=== PATIENT | female | born 1950 | race Caucasian/White ===

== ENCOUNTER → 2018-03-30 | Outpatient (CLI) | payer MEDICARE, OTHER | LOC: COL.RAD 12:47 | DX: M53.3 Sacrococcygeal disorders, not elsewhere classified (principal) | CPT/HCPCS: G0260; J3301 ==

== ENCOUNTER 2018-09-13 17:02 | Emergency (ER) | payer MEDICARE, OTHER ==
[~2018-09-13] VITALS: Ht 170.2 cm; Wt 103.2 kg
[2018-09-13 17:08] VITALS: TEMP 97.1
[2018-09-13 17:22] LABS: BASO % 0.2 % (0.0-2.0); EOS # 0.2 (0.0-0.7); EOS % 4.5 % (0-4.0); GRAN # 2.9 (1.4-6.5); GRAN % 56.9 % (42.2-75.2); HEMATOCRIT 40.2 % (37.0-47.0); HEMOGLOBIN 14.4 g/dl (12.5-16.0); LYMPH # 1.5 (1.2-3.4); LYMPH % 29.7 % (20.0-51.0); MEAN CELL VOLUME 85 fl (80.0-100.0); MEAN CORPUSCULAR HEMOGLOBIN 30 pg (27.0-31.0); MEAN CORPUSCULAR HGB CONC 36 g/dl (33.0-37.0); MONO # 0.4 (0.1-0.6); MONO % 8.1 % (1.7-9.3); PLATELET COUNT 154 K/mm3 (130-400); RED BLOOD COUNT 4.73 M/mm3 (4.10-5.30)
[2018-09-13] MEDS ORDERED: NORVASC 10MG10 MG PO (17:26)
[2018-09-13] MEDS ORDERED: PROAIR HFA0.09 MG/AC INH (17:26)
[2018-09-13] MEDS ORDERED: CALCIUM 600MG+D1 TAB PO (17:27)
[2018-09-13] MEDS ORDERED: ASPIRIN 81M81 MG/TA2 PO (17:27)
[2018-09-13] MEDS ORDERED: CATAPRES0.2 MG PO (17:27)
[2018-09-13] MEDS ORDERED: CARDURA4 MG PO (17:28)
[2018-09-13] MEDS ORDERED: ZYRTEC10MGSGL PO (17:29)
[2018-09-13] MEDS ORDERED: EPA FISH OIL1 SGL PO (17:29)
[2018-09-13] MEDS ORDERED: LOPID 600M600 MG/TAB PO (17:30)
[2018-09-13] MEDS ORDERED: APRESOLINE 25MG25 MG PO (17:30)
[2018-09-13] MEDS ORDERED: NASONEX SPRAY17 GM INH (17:31)
[2018-09-13] MEDS ORDERED: LOPRESSOR 550 MG/TAB PO (17:31)
[2018-09-13] MEDS ORDERED: MULTI-VITAMIN W1 TA2 PO (17:31)
[2018-09-13] MEDS ORDERED: ALTACE 10MG TAB10 MG PO (17:32)
[2018-09-13] MEDS ORDERED: PRAVACHOL 40MG40 MG PO (17:32)
[2018-09-13] MEDS ORDERED: JANUVIA50 MG PO (17:33)
[2018-09-13 17:35] LABS: ALBUMIN 4.7 gm/dL (3.5-5.0); BILIRUBIN,TOTAL 0.7 mg/dL (0.0-1.0); CALCIUM 10.6 mg/dL (8.4-10.2); CREATININE, serum 1.32 (0.52-1.25); TOTAL PROTEIN 7.9 gm/dL (6.4-8.2)
[2018-09-13 18:04] LABS: TROPONIN-I < 0.012 ng/mL (0.000-0.035)
[2018-09-13 18:44] LABS: COLLECTION METHOD CLEAN CATCH
[2018-09-13 18:54] LABS: MUCOUS Present /lpf; PH 7 (5-8); SQUAMOUS EPITHELIAL 0-2 /hpf; URINE APPEARANCE Clear; URINE BACTERIA None Seen /hpf; URINE BILIRUBIN Negative (NEGATIVE); URINE BLOOD Negative (NEGATIVE); URINE COLOR Colorless; URINE GLUCOSE Negative (NEGATIVE); URINE KETONE Negative (NEGATIVE); URINE LEUKOCYTE ESTERASE 1+ (NEGATIVE); URINE NITRATE Negative (NEGATIVE); URINE PROTEIN(semi-quant) 1+ (NEGATIVE); URINE RBC 0-2 /hpf; URINE UROBILINOGEN Negative (NEGATIVE)
[2018-09-13] MEDS ORDERED: ELIQUIS 5MG PO (19:00)
[2018-09-13 19:10] VITALS: BP 112/70; PULSE 83
== END 2018-09-13 19:20 | disposition home or self-care (01) ==
LOC: COL.ER 17:02
PROVIDERS: Emergency Medicine
DX: I48.91 Unspecified atrial fibrillation (principal); E11.9 Type 2 diabetes mellitus without complications; I10 Essential (primary) hypertension; Z79.84 Long term (current) use of oral hypoglycemic drugs; Z79.82 Long term (current) use of aspirin

== ENCOUNTER 2018-09-21 10:50 | Inpatient (IN) | payer MEDICARE, OTHER ==
[~2018-09-21] VITALS: Ht 172.7 cm; Wt 101.4 kg
[~2018-09-21 10:50] MED LIST: ALTACE 10MG TAB10 MG PO; APRESOLINE 25MG25 MG PO; ASPIRIN 81M81 MG/TA2 PO; CALCIUM 600MG+D1 TAB PO; CARDURA4 MG PO; CATAPRES0.2 MG PO; ELIQUIS 5MG PO; EPA FISH OIL1 SGL PO; JANUVIA50 MG PO; LOPID 600M600 MG/TAB PO; LOPRESSOR 550 MG/TAB PO; MULTI-VITAMIN W1 TA2 PO; NASONEX SPRAY17 GM INH; NORVASC 10MG10 MG PO; PRAVACHOL 40MG40 MG PO; PROAIR HFA0.09 MG/AC INH; ZYRTEC10MGSGL PO
[2018-09-24] MEDS ORDERED: TOPROL XL100 MG PO (09:44)
[2018-09-24] MEDS ORDERED: LOPRESSOR100 MG PO (09:46)
[2018-09-24] MEDS ORDERED: ZYRTEC 10MG10 MG PO (09:48)
[2018-09-24 09:58] LABS: HEMOGLOBIN 12.1 g/dl (12.5-16.0); MEAN CELL VOLUME 87 fl (80.0-100.0); MEAN CORPUSCULAR HEMOGLOBIN 30 pg (27.0-31.0); MEAN CORPUSCULAR HGB CONC 35 g/dl (33.0-37.0); MEAN PLATELET VOLUME 9.4 fl (7.4-10.4); PLATELET COUNT 148 K/mm3 (130-400); REDCELL DISTRIBUTION WIDTH-CV 11.9 % (11.5-14.5)
[2018-09-24 10:02] LABS: HEMATOCRIT 34.8 % (37.0-47.0)
[2018-09-24 10:05] LABS: INR 1.1 (0.8-3.0)
[2018-09-24 10:08] LABS: ALBUMIN 4.1 gm/dL (3.5-5.0); BILIRUBIN,TOTAL 0.6 mg/dL (0.0-1.0); CALCIUM 9.8 mg/dL (8.4-10.2); CREATININE, serum 1.6 (0.52-1.25); MAGNESIUM 2.2 mg/dL (1.6-2.3); POTASSIUM 4.8 mmol/L (3.4-5.0); TOTAL PROTEIN 6.8 gm/dL (6.4-8.2)
[2018-09-24 10:21] VITALS: BP 174/71; PULSE 53; TEMP 97.5
[2018-09-24 12:21] VITALS: BP 143/67; PULSE 55; TEMP 97.9
[2018-09-24 16:40] VITALS: BP 115/57; BP 128/53; PULSE 54; PULSE 84; TEMP 97.4; TEMP 97.9
--- NOTE | 2018-09-24 19:20 | NUR ---
Pt is independent in the room is able to use the restroom on own and transfer to the recliner as desired, VS have remained stable from admit this morning, spouse spent a good portion of the day in the room with the Pt. No C/O pain, loop recorder site remains CDI.
[2018-09-24 19:57] VITALS: BP 171/67; PULSE 51; TEMP 97.6
[2018-09-24 23:04] VITALS: BP 127/60; PULSE 50; TEMP 97.7
--- NOTE | 2018-09-24 23:52 | NUR ---
2000: PATIENT LAYING FLAT IN BED. RIGHT GROIN HEART CATH SITE PRESENTS SOFT, NO VISIBLE BRUISING. DRESSING CDI.
[2018-09-25 05:08] VITALS: BP 137/54; PULSE 50; TEMP 98.3
--- NOTE | 2018-09-25 06:35 | NUR ---
CALL TO DR [facility] FOR IMDUR. REVIEWED DOCUMENTED BP, HR AND TELEMETRY STRIPS. COMMUNICATION TO ADMINISTERED IMDUR ACCORDING TO SCHEDULE.
[2018-09-25 06:54] LABS: BASO % 0.2 % (0.0-2.0); EOS # 0.2 (0.0-0.7); EOS % 5.2 % (0-4.0); GRAN # 2.1 (1.4-6.5); GRAN % 51.7 % (42.2-75.2); LYMPH # 1.4 (1.2-3.4); LYMPH % 34.2 % (20.0-51.0); MEAN CELL VOLUME 88 fl (80.0-100.0); MEAN CORPUSCULAR HEMOGLOBIN 30 pg (27.0-31.0); MEAN CORPUSCULAR HGB CONC 34 g/dl (33.0-37.0); MEAN PLATELET VOLUME 9.6 fl (7.4-10.4); MONO # 0.3 (0.1-0.6); MONO % 8.5 % (1.7-9.3); PLATELET COUNT 148 K/mm3 (130-400); RED BLOOD COUNT 3.97 M/mm3 (4.10-5.30)
[2018-09-25 07:05] LABS: CALCIUM 9.3 mg/dL (8.4-10.2); CREATININE, serum 1.41 (0.52-1.25); MAGNESIUM 2.1 mg/dL (1.6-2.3); POTASSIUM 4.4 mmol/L (3.4-5.0)
[2018-09-25 07:08] LABS: HEMATOCRIT 34.9 % (37.0-47.0)
[2018-09-25 07:19] VITALS: BP 157/64; PULSE 51; TEMP 98.2
--- NOTE | 2018-09-25 08:14 | NUR ---
Pt awake and eating breakfast, no C/O pain at this time, some minor discomfort at loop recorder insertion site, shift assessment complete, left Pt call light in reach, bed in lowest position.
[2018-09-25 11:20] VITALS: BP 144/62; PULSE 52; TEMP 97.5
--- NOTE | 2018-09-25 11:24 | NUR ---
First visit from the service porter. prayed with patient. No other needs right now.
--- NOTE | 2018-09-25 15:27 | NUR ---
WAYNE met with the patient to discuss discharge plan. The patient lives in [place] with her , Yordy. She reports independence with ADLs and has a CPAP from [employer]. The patient's PCP is Dr. Laisha Mcclain and she receives her medications from the [facility] in [place]. She reports no difficulties obtaining his meds. The patient does not have advanced directives, but she states that she has the forms at home. The patient plans to return home with her upon discharge. No additional needs at this time.
[2018-09-25 16:36] VITALS: BP 143/67; PULSE 50; TEMP 97.6
--- NOTE | 2018-09-25 18:24 | NUR ---
Pt has been resting comfortably in room, no C/O pain at the loop recorder site, bandages remain CDI, Vs have remained stable.
[2018-09-25 19:58] VITALS: BP 153/62; PULSE 51; TEMP 97.5
--- NOTE | 2018-09-25 20:00 | NUR ---
Shift assessment complete. Pt resting in bed, awake, a&o, cooperative c cares. Pt denies pain or any other c/o. INT patent. Tele in place. Pt denies needs. Call light in reach, will monitor.
[2018-09-26] VITALS (7 sets, daily range): BP systolic 120–173; BP diastolic 53–84; PULSE 41–50; TEMP 97.5–98.4
[2018-09-26 06:09] LABS: BASO % 0.2 % (0.0-2.0); EOS # 0.3 (0.0-0.7); EOS % 5.8 % (0-4.0); GRAN # 2.6 (1.4-6.5); GRAN % 56.6 % (42.2-75.2); HEMOGLOBIN 12.1 g/dl (12.5-16.0); LYMPH # 1.3 (1.2-3.4); LYMPH % 28.8 % (20.0-51.0); MEAN CELL VOLUME 86 fl (80.0-100.0); MEAN CORPUSCULAR HEMOGLOBIN 30 pg (27.0-31.0); MEAN CORPUSCULAR HGB CONC 35 g/dl (33.0-37.0); MEAN PLATELET VOLUME 10.3 fl (7.4-10.4); MONO # 0.4 (0.1-0.6); MONO % 8.2 % (1.7-9.3); PLATELET COUNT 141 K/mm3 (130-400); RED BLOOD COUNT 4.02 M/mm3 (4.10-5.30); REDCELL DISTRIBUTION WIDTH-CV 11.9 % (11.5-14.5)
[2018-09-26 06:10] LABS: HEMATOCRIT 34.6 % (37.0-47.0)
--- NOTE | 2018-09-26 06:10 | NUR ---
Pt resting in bed, condition unchanged. Pt has rested well this shift c very few needs. No needs at this time. Tele remains sinus/ sinus yumiko; pt asymptomatic. Call light in reach.
[2018-09-26 06:16] LABS: CALCIUM 9.6 mg/dL (8.4-10.2); CREATININE, serum 1.32 (0.52-1.25); MAGNESIUM 2.1 mg/dL (1.6-2.3); POTASSIUM 4.5 mmol/L (3.4-5.0)
--- NOTE | 2018-09-26 11:12 | NUR ---
Pt sitting up in recliner, no C/O pain, shift assessments complete, left Pt call light in reach, bed in lowest position.
--- NOTE | 2018-09-26 11:25 | NUR ---
Patient was not in the room.
--- NOTE | 2018-09-26 18:05 | NUR ---
Pt resting comfortably in room, urine is still very dark he does have good output. No C/O pain and his VS have remained stable during the shift. Pt did have a bath today with the assistance of the LAMINATING MACHINE TENDER.
--- NOTE | 2018-09-26 18:11 | NUR ---
Pt has been resting in the room she has been independent in the room, no C/O pain, VS have remained stable.
[2018-09-27 03:43] VITALS: BP 123/50; PULSE 48; TEMP 97.8
--- NOTE | 2018-09-27 05:02 | NUR ---
Pt resting in bed, condition unchanged. Pt has rested well this shift c very few needs. No needs at this time. Call light in reach.
--- NOTE | 2018-09-27 06:48 | NUR ---
Received report from FRANK Salazar.
--- NOTE | 2018-09-27 07:39 | NUR ---
Pt awake and sitting up in bed, talkative, no C/O pain at this time, shift assessments complete, WNL, left Pt call light in reach, bed in lowest position.
[2018-09-27 07:52] VITALS: BP 152/65; PULSE 44; TEMP 97.8
[2018-09-27 07:59] LABS: BASO % 0.2 % (0.0-2.0); EOS # 0.2 (0.0-0.7); EOS % 4.8 % (0-4.0); GRAN # 2.5 (1.4-6.5); GRAN % 60.5 % (42.2-75.2); HEMOGLOBIN 12.3 g/dl (12.5-16.0); LYMPH # 1.1 (1.2-3.4); LYMPH % 26.4 % (20.0-51.0); MEAN CELL VOLUME 87 fl (80.0-100.0); MEAN CORPUSCULAR HEMOGLOBIN 30 pg (27.0-31.0); MEAN CORPUSCULAR HGB CONC 35 g/dl (33.0-37.0); MEAN PLATELET VOLUME 9.9 fl (7.4-10.4); MONO # 0.3 (0.1-0.6); MONO % 7.6 % (1.7-9.3); PLATELET COUNT 150 K/mm3 (130-400); RED BLOOD COUNT 4.09 M/mm3 (4.10-5.30); REDCELL DISTRIBUTION WIDTH-CV 11.9 % (11.5-14.5)
[2018-09-27 08:02] LABS: HEMATOCRIT 35.4 % (37.0-47.0)
[2018-09-27 08:13] LABS: CALCIUM 9.5 mg/dL (8.4-10.2); CREATININE, serum 1.39 (0.52-1.25); MAGNESIUM 2.1 mg/dL (1.6-2.3); POTASSIUM 4.4 mmol/L (3.4-5.0)
[2018-09-27 12:25] VITALS: BP 160/79; PULSE 50; TEMP 97.6
[2018-09-27 15:46] VITALS: BP 144/67; PULSE 50; TEMP 97.7
[2018-09-27 19:14] VITALS: BP 140/68; PULSE 50; TEMP 97.4
--- NOTE | 2018-09-27 20:45 | NUR ---
Shift assessment complete. Pt resting in bedside recliner, awake, a&o, cooperative c cares. Pt denies pain or any other c/o. INT patent. Tele in place. Pt amb ind in halls. Denies any needs at this time. Call light in reach, will monitor.
[2018-09-28 00:02] VITALS: BP 109/51; PULSE 50; TEMP 97.9
[2018-09-28 03:31] VITALS: BP 134/60; PULSE 40; TEMP 97.8
--- NOTE | 2018-09-28 04:19 | NUR ---
Pt resting in bed, condition unchanged. Pt has rested well this shift c very few needs. Pt remains bradycardic per telemetry, HR steady 40-45 c occasional brief moments as low as 38; remains asymptomatic. Pt s needs. Call light in reach.
[2018-09-28 06:59] LABS: BASO % 0.4 % (0.0-2.0); EOS # 0.2 (0.0-0.7); EOS % 4.4 % (0-4.0); GRAN # 3.2 (1.4-6.5); GRAN % 59.2 % (42.2-75.2); HEMOGLOBIN 12.7 g/dl (12.5-16.0); LYMPH # 1.5 (1.2-3.4); LYMPH % 27.9 % (20.0-51.0); MEAN CELL VOLUME 86 fl (80.0-100.0); MEAN CORPUSCULAR HEMOGLOBIN 30 pg (27.0-31.0); MEAN CORPUSCULAR HGB CONC 35 g/dl (33.0-37.0); MEAN PLATELET VOLUME 9.9 fl (7.4-10.4); MONO # 0.4 (0.1-0.6); MONO % 7.7 % (1.7-9.3); PLATELET COUNT 176 K/mm3 (130-400); RED BLOOD COUNT 4.28 M/mm3 (4.10-5.30)
[2018-09-28 07:03] LABS: HEMATOCRIT 36.8 % (37.0-47.0)
[2018-09-28 07:11] LABS: CALCIUM 9.7 mg/dL (8.4-10.2); CREATININE, serum 1.58 (0.52-1.25); MAGNESIUM 2.2 mg/dL (1.6-2.3); POTASSIUM 4.5 mmol/L (3.4-5.0)
[2018-09-28 08:09] VITALS: BP 142/68; PULSE 87; TEMP 98.3
[2018-09-28 08:10] VITALS: BP 137/63; PULSE 44; TEMP 98.7
--- NOTE | 2018-09-28 09:44 | NUR ---
Pt sitting up in recliner, no C/O pain, shift assessments complete, left Pt call light in reach.
[2018-09-28] MEDS ORDERED: CORDARONE200 MG/TAB PO ×3 (10:06→10:11)
[2018-09-28] MEDS ORDERED: PACERONE200 MG PO (10:06)
[2018-09-28] MEDS ORDERED: LOPRESSOR100 MG PO (10:07)
[2018-09-28] MEDS ORDERED: LOPRESSOR 550 MG/TAB PO (10:09)
--- NOTE | 2018-09-28 11:45 | NUR ---
Pt discharged to home, spouse provided transport, escorted to curbside by [employer]AN[employer].
== END 2018-09-28 11:46 | disposition home or self-care (01) | DRG 261 ==
LOC: MEDICAL 09-24 08:33
PROVIDERS: Nurse Practitioner; ADMIT Internal Medicine Cardiovascular Disease
PROC: 0JH632Z Insertion of Monitoring Device into Chest Subcutaneous Tissue and Fascia, Percutaneous Approach (ICD-10-PCS; principal; 2018-09-24)
DX: I48.0 Paroxysmal atrial fibrillation (principal); N18.4 Chronic kidney disease, stage 4 (severe); E78.5 Hyperlipidemia, unspecified; I44.7 Left bundle-branch block, unspecified; E11.22 Type 2 diabetes mellitus with diabetic chronic kidney disease; I12.9 Hypertensive chronic kidney disease with stage 1 through stage 4 chronic kidney disease, or unspecified chronic kidney disease; E66.9 Obesity, unspecified; G47.33 Obstructive sleep apnea (adult) (pediatric); I35.1 Nonrheumatic aortic (valve) insufficiency; Z68.33 Body mass index [BMI] 33.0-33.9, adult
CPT/HCPCS: C1764

== ENCOUNTER → 2019-05-11 | Outpatient (CLI) | payer MEDICARE, OTHER ==
[~2019-05-11] MED LIST changes: +CEPHALEXIN500 M1 PO; +CORDARONE200 MG/TAB PO; +LOPRESSOR100 MG PO; +PACERONE200 MG PO; +TOPROL XL100 MG PO; +ZYRTEC 10MG10 MG PO
== END ==
LOC: MC.RAD 15:19
DX: Z12.31 Encounter for screening mammogram for malignant neoplasm of breast (principal)

== ENCOUNTER → 2021-07-26 | Outpatient (CLI) | payer MEDICARE, OTHER ==
[~2021-07-26] MED LIST changes: +AMOXICILLIN 8751 TAB PO; +PEPCID 20MG TAB20 MG PO; +PREDNISONE10 MG PO; +TAMIFLU30 MG PO; +TRULICITY0.75 MG/0. SQ
== END ==
LOC: DIA.ED 09:21
DX: E11.40 Type 2 diabetes mellitus with diabetic neuropathy, unspecified (principal); Z79.899 Other long term (current) drug therapy; E78.5 Hyperlipidemia, unspecified; I10 Essential (primary) hypertension

== ENCOUNTER 2021-08-10 07:15 | Day surgery (SDC) | payer MEDICARE, OTHER ==
[~2021-08-10] VITALS: Ht 172.7 cm; Wt 102.7 kg
[~2021-08-10 07:15] MED LIST changes: -AMOXICILLIN 8751 TAB PO; -PEPCID 20MG TAB20 MG PO; -PREDNISONE10 MG PO; -TAMIFLU30 MG PO; -TRULICITY0.75 MG/0. SQ
[2021-08-10 09:15] VITALS: BP 137/71; PULSE 69; TEMP 97.8
--- NOTE | 2021-08-10 09:15 | NUR ---
Pt returned via cart and ambulated SBA to recliner in bay. A&O. present in room. VSS-see flowsheet. Call light in reach. Given coffee and apple sauce per request.
[2021-08-10 09:30] VITALS: BP 144/70; PULSE 59
[2021-08-10 09:45] VITALS: BP 148/74; PULSE 60
--- NOTE | 2021-08-10 10:16 | NUR ---
Pts VS remain stable. Dr in to visit post procedure. Tolerated oral intake. IV removed, catheter tip intact and pressure dressing applied. Pt dressed independently. Discharge teaching comleted, pt and pts spouse verbalized understanding. Taken via wheelchair to private vehicle for dc home with spouse driving.
[2021-08-10 15:04] VITALS: BP 154/78; PULSE 85; TEMP 98.1
[2021-08-12] MEDS ORDERED: PACERONE200 MG PO (21:03)
[2021-08-12] MEDS ORDERED: ASPIRIN 81M81 MG/TA2 PO (21:04)
[2021-08-12] MEDS ORDERED: TRULICITY0.75 MG/0. SQ (21:05)
[2021-08-12] MEDS ORDERED: APRESOLINE 25MG25 MG PO (21:06)
[2021-08-12] MEDS ORDERED: PEPCID 20MG TAB20 MG PO (21:09)
[2021-08-16] MEDS ORDERED: TAMIFLU30 MG PO ×3 (11:17→12:12)
[2021-08-16] MEDS ORDERED: PREDNISONE10 MG PO (11:19)
[2021-08-16] MEDS ORDERED: AMOXICILLIN 8751 TAB PO (11:21)
== END 2021-08-10 10:16 | disposition home or self-care (01) ==
LOC: SDCO 07:15
DX: K21.00 Gastro-esophageal reflux disease with esophagitis, without bleeding (principal); K22.2 Esophageal obstruction; K22.10 Ulcer of esophagus without bleeding; K64.4 Residual hemorrhoidal skin tags; K64.2 Third degree hemorrhoids; K59.00 Constipation, unspecified; K62.5 Hemorrhage of anus and rectum; K57.30 Diverticulosis of large intestine without perforation or abscess without bleeding; R19.5 Other fecal abnormalities; G47.33 Obstructive sleep apnea (adult) (pediatric); Z99.89 Dependence on other enabling machines and devices; Z79.899 Other long term (current) drug therapy; Z79.01 Long term (current) use of anticoagulants
CPT/HCPCS: J2704

== ENCOUNTER 2021-10-12 09:28 | Day surgery (SDC) | payer MEDICARE, OTHER ==
[2021-10-12] VITALS (13 sets, daily range): BP systolic 123–180; BP diastolic 72–109; PULSE 59–90; TEMP 98.8
[~2021-10-12] VITALS: Ht 170.2 cm; Wt 96.3 kg
[~2021-10-12 09:28] MED LIST changes: +AMOXICILLIN 8751 TAB PO; +PEPCID 20MG TAB20 MG PO; +PREDNISONE10 MG PO; +TAMIFLU30 MG PO; +TRULICITY0.75 MG/0. SQ
[2021-10-12] MEDS ORDERED: ELIQUIS 5MG PO (10:23)
[2021-10-12] MEDS ORDERED: LIPITOR 80MG80 MG PO (10:24)
[2021-10-12] MEDS ORDERED: TEMOVATE0.05% TP (10:26)
[2021-10-12] MEDS ORDERED: VOLTAREN GEL 1%1 TU TP (10:27)
[2021-10-12] MEDS ORDERED: GLUCOTROL 5M5 MG/TAB PO (10:30)
[2021-10-12] MEDS ORDERED: LIDEX CR 15GM TP (10:30)
[2021-10-12] MEDS ORDERED: METAMUCIL FIBE PO (10:32)
[2021-10-12] MEDS ORDERED: CORTISPORIN1 OI1 OP (10:36)
[2021-10-12] MEDS ORDERED: PROTONIX 40MG T40 MG PO (10:37)
[2021-10-12 10:38] LABS: HEMATOCRIT 36.6 % (37.0-47.0); HEMOGLOBIN 12.4 g/dl (12.5-16.0); MEAN CELL VOLUME 89 fl (80.0-100.0); MEAN CORPUSCULAR HEMOGLOBIN 30 pg (27-31); MEAN CORPUSCULAR HGB CONC 34 g/dl (33.0-37.0); MEAN PLATELET VOLUME 9.2 fl (7.4-10.4); PLATELET COUNT 159 K/mm3 (130-400); RED BLOOD COUNT 4.12 M/mm3 (4.10-5.30); REDCELL DISTRIBUTION WIDTH-CV 13.3 % (11.5-14.5)
[2021-10-12] MEDS ORDERED: MIRALAX PA17 GM/Dose PO (10:38)
[2021-10-12] MEDS ORDERED: ALTACE 10MG TAB10 MG PO (10:38)
[2021-10-12 10:52] LABS: INR 1.1 (0.8-3.0); PROTHROMBIN TIME 12.4 SECONDS (9.7-12.8)
[2021-10-12 10:55] LABS: PARTIAL THROMBOPLASTIN TIME 32.8 SECONDS (26.0-37.0)
[2021-10-12 11:04] LABS: CREATININE, serum 1.61 mg/dL (0.57-1.11); POTASSIUM 4.1 mmol/L (3.5-4.5)
--- NOTE | 2021-10-12 11:11 | NUR ---
SEE MERGE DOCUMENTATION FOR MEDICATION ADMINISTRATION AND INTRA/POST PROCEDURE SEDATION ASSESSMETNS.
--- NOTE | 2021-10-12 15:00 | NUR ---
All air removed from band in 2-3 ml incriments.No bleeding at site observed.
--- NOTE | 2021-10-12 16:00 | NUR ---
Discharge instructions given to pt.pt verbalizes understanding.Pt escorted out via wheelchair by this nruse.
== END 2021-10-12 16:45 ==
LOC: COL.CAR 09:28
PROVIDERS: Internal Medicine Cardiovascular Disease
DX: I25.10 Atherosclerotic heart disease of native coronary artery without angina pectoris (principal); I42.9 Cardiomyopathy, unspecified; E66.9 Obesity, unspecified; G47.33 Obstructive sleep apnea (adult) (pediatric)
CPT/HCPCS: J1644; J2250; J3010; Q9967

== ENCOUNTER → 2021-11-15 | Outpatient (CLI) | payer MEDICARE, OTHER ==
[~2021-11-15] MED LIST changes: +CORTISPORIN1 OI1 OP; +GLUCOTROL 5M5 MG/TAB PO; +LIDEX CR 15GM TP; +LIPITOR 80MG80 MG PO; +METAMUCIL FIBE PO; +MIRALAX PA17 GM/Dose PO; +PROTONIX 40MG T40 MG PO; +TEMOVATE0.05% TP; +VOLTAREN GEL 1%1 TU TP
== END ==
LOC: DIA.ED 10:55
DX: E11.65 Type 2 diabetes mellitus with hyperglycemia (principal); E11.40 Type 2 diabetes mellitus with diabetic neuropathy, unspecified; Z79.84 Long term (current) use of oral hypoglycemic drugs; E78.5 Hyperlipidemia, unspecified; I10 Essential (primary) hypertension